=== PATIENT | female | born 1995 | race Caucasian/White ===

== ENCOUNTER 2017-10-15 07:45 | Emergency (ER) | payer SELFPAY ==
[~2017-10-15] VITALS: Ht 157.5 cm; Wt 72.8 kg
[~2017-10-15 07:45] MED LIST: FLUT1DIS IH
[2017-10-15 08:36] LABS: MICROSCOPIC AUTO
[2017-10-15 08:38] LABS: CULTURE INDICATED? NO
[2017-10-15 08:48] LABS: BASOPHILS # (AUTO) 0.02 x10^3/uL (0-0.1); BASOPHILS % (AUTO) 0 % (0-1); EOSINOPHILS # (AUTO) 0.53 x10^3/uL (0-0.4); EOSINOPHILS % (AUTO) 6 % (1-7); LYMPHOCYTES # (AUTO) 2.73 x10^3/uL (1-3.4); LYMPHOCYTES % (AUTO) 29 % (22-44); MD NO; MEAN CORPUSCULAR HEMOGLOBIN 31.7 pg (27.0-34.8); MEAN CORPUSCULAR HGB CONC 34.3 g/dL (32.4-35.8); MEAN CORPUSCULAR VOLUME 92.6 fL (80-100); MEAN PLATELET VOLUME 8.4 fL (7.4-10.4); MONOCYTES # (AUTO) 0.45 x10^3/uL (0.2-0.8); MONOCYTES % (AUTO) 5 % (2-9); NEUTROPHILS # (AUTO) 5.76 x10^3/uL (1.8-6.8); NEUTROPHILS % (AUTO) 61 % (42-75); PLATELET COUNT 305 x10^3/uL (130-400); RED BLOOD COUNT 4.44 x10^6/uL (3.82-5.3); RED CELL DISTRIBUTION WIDTH 12.3 % (9.6-15.2)
[2017-10-15 08:59] LABS: ALANINE AMINOTRANSFERASE 32 U/L (12-78); ALBUMIN 3.5 g/dL (3.4-5.0); ANION GAP 7 mmol/L (5-15); CALCIUM 8.4 mg/dL (8.5-10.1); CHLORIDE 110 mmol/L (98-107); CREATININE 0.82 mg/dL (0.55-1.02)
[2017-10-15 09:04] LABS: ALKALINE PHOSPHATASE 69 U/L (45-117); BILIRUBIN,TOTAL 0.2 mg/dL (0.2-1.0); TOTAL PROTEIN 7.3 g/dL (6.4-8.2)
[2017-10-15 09:11] VITALS: BP 99/63
== END 2017-10-15 10:02 | disposition home or self-care (01) ==
LOC: ED 09:07
DX: O20.0 Threatened abortion (principal); Z3A.01 Less than 8 weeks gestation of pregnancy
CPT/HCPCS: 36415; 76801; 80053; 81001; 84702; 85025; 86901; 99285

== ENCOUNTER 2017-11-30 08:54 | Emergency (ER) | payer BC, OTHER ==
[~2017-11-30] VITALS: Ht 157.5 cm; Wt 71.0 kg
[2017-11-30] MEDS ORDERED: EPINEPHRINE 1 MG/ML, 1ML ONE (09:06)
[2017-11-30] MEDS ORDERED: DIPHENHYDRAMINE 50 MG/ML, 1ML ONE (09:14)
[2017-11-30] MEDS ORDERED: methylPREDNISolone SOD SUCC 125 MG/2 ML ONE (09:14)
[2017-11-30] MEDS ORDERED: methylPREDNISolone SOD SUCC 125 MG/2 ML IVPush ONE (09:30)
[2017-11-30] MEDS ORDERED: EPINEPHRINE 1 MG/ML, 1ML IM ONE (09:30)
[2017-11-30] MEDS ORDERED: SODIUM CHLORIDE 0.9% 1,000ML IVBOLUS ONE (09:30)
[2017-11-30] MEDS ORDERED: DIPHENHYDRAMINE 50 MG/ML, 1ML IVPush ONE (09:30)
[2017-11-30 10:48] VITALS: BP 96/62
== END 2017-11-30 10:51 | disposition home or self-care (01) ==
LOC: ED 09:47
DX: T78.1XXA Other adverse food reactions, not elsewhere classified, initial encounter (principal); X58.XXXA Exposure to other specified factors, initial encounter; Y93.89 Activity, other specified; Y92.89 Other specified places as the place of occurrence of the external cause; Y99.8 Other external cause status
CPT/HCPCS: 96372; 96374; 96375; 99291; J0171; J1200; J2930; J7030; 96361

== ENCOUNTER 2017-12-23 00:10 | Emergency (ER) | payer BC ==
[~2017-12-23] VITALS: Ht 157.5 cm; Wt 75.0 kg
[2017-12-23 00:12] VITALS: BP 125/76
[2017-12-23] MEDS ORDERED: KETOROLAC 30 MG/1 ML ONE (00:56)
[2017-12-23] MEDS ORDERED: KETOROLAC 30 MG/1 ML IM ONE (01:00)
== END 2017-12-23 02:50 | disposition home or self-care (01) ==
LOC: ED 01:54
DX: S99.922A Unspecified injury of left foot, initial encounter (principal); S99.921A Unspecified injury of right foot, initial encounter; G89.11 Acute pain due to trauma; J45.909 Unspecified asthma, uncomplicated; W01.0XXA Fall on same level from slipping, tripping and stumbling without subsequent striking against object, initial encounter; Y93.41 Activity, dancing; Y92.009 Unspecified place in unspecified non-institutional (private) residence as the place of occurrence of the external cause; Y99.8 Other external cause status
CPT/HCPCS: 73590; 73610; 73630; 96372; 99284; J1885

== ENCOUNTER 2018-12-15 19:56 | Outpatient (CLI) | payer BC ==
[~2018-12-15] VITALS: Ht 154.9 cm; Wt 80.0 kg
== END 2018-12-15 20:45 | disposition home or self-care (01) ==
LOC: LDOP 19:56
PROVIDERS: ATTEND Obstetrics & Gynecology
DX: O26.893 Other specified pregnancy related conditions, third trimester (principal); Z3A.38 38 weeks gestation of pregnancy
CPT/HCPCS: 59025; 99211; G0463

== ENCOUNTER 2018-12-16 10:15 | Inpatient (IN) | payer BC ==
[~2018-12-16] VITALS: Ht 154.9 cm; Wt 80.9 kg
[2018-12-16] MEDS ORDERED: OXYTOCIN 30U/ 0.9% NaCL 500ML 500 ML IV ONE (10:17)
[2018-12-16] MEDS ORDERED: D5%-LACTATED RINGERS 1,000 ML IV SCH (10:17)
[2018-12-16] MEDS ORDERED: FENTANYL PF 100 MCG/2ML ONE ×2 (10:27→12:32)
[2018-12-16] MEDS ORDERED: MISOPROSTOL 200 MCG TABLET ONE ×2 (10:27→15:46)
[2018-12-16] MEDS ORDERED: LIDOCAINE 1%, 20ML ONE (10:27)
[2018-12-16] MEDS ORDERED: NEWBORN KIT ONE (10:27)
[2018-12-16] MEDS ORDERED: OXYTOCIN 30U/ 0.9% NaCL 500ML 500 ML ONE (10:28)
[2018-12-16] MEDS: LACTATED RINGERS 1,000 ML IV SCH ×2 (10:29→18:17)
[2018-12-16] MEDS ORDERED: TERBUTALINE 1 MG/ML, 1ML IVPush PRN (10:30)
[2018-12-16] MEDS ORDERED: ONDANSETRON 2MG/ML, 2ML IVPush PRN (10:30)
[2018-12-16] MEDS: FENTANYL PF 100 MCG/2ML IVPush PRN ×2 (10:30→12:37)
[2018-12-16] MEDS ORDERED: FENTANYL PF 100 MCG/2ML IV PRN (10:30)
[2018-12-16] MEDS ORDERED: SODIUM CITRATE/CITRIC ACID 15 ML UDC PO PRN (10:30)
[2018-12-16] MEDS ORDERED: METOCLOPRAMIDE 5 MG/ML, 2ML IVPush PRN (10:30)
[2018-12-16 10:44] VITALS: BP 97/59
[2018-12-16 11:08] LABS: BASOPHILS # (AUTO) 0.03 x10^3/uL (0-0.1); BASOPHILS % (AUTO) 0 % (0-1); EOSINOPHILS # (AUTO) 0.14 x10^3/uL (0-0.4); EOSINOPHILS % (AUTO) 1 % (1-7); LYMPHOCYTES # (AUTO) 2.27 x10^3/uL (1-3.4); LYMPHOCYTES % (AUTO) 22 % (22-44); MD NO; MEAN CORPUSCULAR HGB CONC 34.6 g/dL (32.4-35.8); MEAN CORPUSCULAR VOLUME 95.3 fL (80-100); MEAN PLATELET VOLUME 8.5 fL (7.4-10.4); MONOCYTES # (AUTO) 0.71 x10^3/uL (0.2-0.8); MONOCYTES % (AUTO) 7 % (2-9); NEUTROPHILS # (AUTO) 7.41 x10^3/uL (1.8-6.8); NEUTROPHILS % (AUTO) 70 % (42-75); PLATELET COUNT 229 x10^3/uL (130-400); RED BLOOD COUNT 3.86 x10^6/uL (3.82-5.3); RED CELL DISTRIBUTION WIDTH 13.1 % (9.6-15.2)
[2018-12-16] MEDS: OXYTOCIN 30U/ 0.9% NaCL 500ML 500 ML IV SCH (14:42)
[2018-12-16] MEDS ORDERED: IBUPROFEN 600 MG TABLET ONE (15:10)
[2018-12-16] MEDS: IBUPROFEN 600 MG TABLET PO PRN ×2 (15:12→21:44)
[2018-12-16] MEDS ORDERED: MISOPROSTOL 200 MCG TABLET PR PRN (15:30)
[2018-12-16] MEDS ORDERED: OXYcodone/APAP 5/325MG TABLET PO PRN (15:30)
[2018-12-16] MEDS ORDERED: OXYcodone/APAP 5/325MG TABLET ONE (15:57)
[2018-12-16] MEDS: OXYcodone/APAP 5/325MG TABLET PO PRN ×2 (15:58→21:44)
[2018-12-16] MEDS ORDERED: MISOPROSTOL 200 MCG TABLET PR ONE (16:00)
[2018-12-16 18:00] VITALS: BP 102/68
[2018-12-16 21:30] VITALS: BP 99/64
[2018-12-16] MEDS: DOCUSATE 100 MG CAPSULE PO PRN (21:44)
[2018-12-16 23:05] LABS: BASOPHILS # (AUTO) 0.04 x10^3/uL (0-0.1); BASOPHILS % (AUTO) 0 % (0-1); EOSINOPHILS # (AUTO) 0.07 x10^3/uL (0-0.4); EOSINOPHILS % (AUTO) 1 % (1-7); LYMPHOCYTES # (AUTO) 2.07 x10^3/uL (1-3.4); LYMPHOCYTES % (AUTO) 19 % (22-44); MD NO; MEAN CORPUSCULAR HEMOGLOBIN 33.2 pg (27.0-34.8); MEAN CORPUSCULAR HGB CONC 34.7 g/dL (32.4-35.8); MEAN CORPUSCULAR VOLUME 95.6 fL (80-100); MEAN PLATELET VOLUME 8.1 fL (7.4-10.4); MONOCYTES % (AUTO) 5 % (2-9); NEUTROPHILS # (AUTO) 8.37 x10^3/uL (1.8-6.8); NEUTROPHILS % (AUTO) 75 % (42-75); PLATELET COUNT 202 x10^3/uL (130-400); RED BLOOD COUNT 3.65 x10^6/uL (3.82-5.3); RED CELL DISTRIBUTION WIDTH 13.4 % (9.6-15.2)
[2018-12-17 01:00] VITALS: BP 92/56
[2018-12-17] MEDS: OXYTOCIN 30U/ 0.9% NaCL 500ML 500 ML IV SCH (01:07)
[2018-12-17] MEDS: LACTATED RINGERS 1,000 ML IV SCH (02:17)
[2018-12-17 04:20] VITALS: BP 93/62
[2018-12-17] MEDS: DOCUSATE 100 MG CAPSULE PO PRN (08:07)
[2018-12-17 08:18] VITALS: BP 97/65
[2018-12-17] MEDS ORDERED: PRENATAL VIT/IRON/FA 1 EACH TABLET PO SCH (09:00)
== END 2018-12-17 13:26 | disposition home or self-care (01) | DRG 807 ==
LOC: LDIP 10:15 → 2NW 17:15
PROVIDERS: ADMIT Obstetrics & Gynecology; ATTEND Obstetrics & Gynecology
PROC: 10E0XZZ Delivery of Products of Conception, External Approach (ICD-10-PCS; principal; 2018-12-16)
PROC: 0HQ9XZZ Repair Perineum Skin, External Approach (ICD-10-PCS; 2018-12-16)
PROC: 10907ZC Drainage of Amniotic Fluid, Therapeutic from Products of Conception, Via Natural or Artificial Opening (ICD-10-PCS; 2018-12-16)
DX: O99.52 Diseases of the respiratory system complicating childbirth (principal); Z37.0 Single live birth; Z3A.38 38 weeks gestation of pregnancy; O70.0 First degree perineal laceration during delivery; J45.909 Unspecified asthma, uncomplicated
CPT/HCPCS: 36415; 85025; 86850; 86900; G0378; J3010; J2590; J7120

== ENCOUNTER 2020-06-06 04:42 | Emergency (ER) | payer BC ==
[~2020-06-06] VITALS: Ht 154.9 cm; Wt 80.0 kg
--- NOTE | 2020-06-06 05:04 | NUR ---
[place] [id number] [phone]
--- NOTE | 2020-06-06 05:50 | NUR ---
PT BROUGHT BACK TO THIS RN ROOM AT THIS TIME. PT RESTING ON GURNEY, NAD, APPEARS COMFORTABLE, PLACED ON SPO2/BP MONITORING AT THIS TIME. WCTM PT BIB [facility] FROM A [employer] WITH FRIENDS. PT DRANK SIGNIFICANT AMOUNTS OF TEQUILA AND WHITECLAWS. PT NOW DROWSY, ETOH ODOR, NAD, MAINTAINING AIRWAY. FINGER STICK 68 EN ROUTE, NOW 88
--- NOTE | 2020-06-06 06:40 | NUR ---
pt resting on gurney, nad, appears comfortable, warm blanket provided for comfort, lights dimmed, monitoring in place, vss, wctm.
--- NOTE | 2020-06-06 06:58 | NUR ---
bedside report to Dario WATKINS. pt care transferred at this time.
--- NOTE | 2020-06-06 07:10 | NUR ---
PATIENT ASLEEP, WAKES EASILY WITH LIGHT STIMULATION. PATIETN RAILS UP, ON MONITOR.
--- NOTE | 2020-06-06 08:14 | NUR ---
CALLED [facility] TO [facility]MENT[employer]AFETY SPECIALIST. PATIENT FEELS IMPROVED. TIRED. ORIENTED. DISCHARGE REVIEWED.
[2020-06-06 08:15] VITALS: BP 111/65
--- NOTE | 2020-06-06 08:23 | NUR ---
PATIENT GOOD ON FEET, KNOWS ADDRESS ORIENTED X4. GOT HER [employer] HOME
== END 2020-06-06 08:25 | disposition home or self-care (01) ==
LOC: ED 08:00
DX: F10.220 Alcohol dependence with intoxication, uncomplicated (principal); J45.909 Unspecified asthma, uncomplicated; Y90.9 Presence of alcohol in blood, level not specified
CPT/HCPCS: 82962; 99283

== ENCOUNTER 2021-03-16 09:31 | Emergency (ER) | payer BC ==
[~2021-03-16] VITALS: Ht 154.9 cm; Wt 76.3 kg
[2021-03-16] MEDS ORDERED: SODIUM CHLORIDE FLUSH 10ML SYR IVF ONE (10:30)
[2021-03-16] MEDS ORDERED: SODIUM CHLORIDE 0.9% 1,000ML IVBOLUS ONE (10:30)
[2021-03-16] MEDS ORDERED: ONDANSETRON 2MG/ML, 2ML IVPush ONE (10:30)
[2021-03-16 10:44] LABS: BASOPHILS % (AUTO) 0 % (0-1); EOSINOPHILS % (AUTO) 7 % (1-7); LYMPHOCYTES % (AUTO) 42 % (22-44); MEAN CORPUSCULAR HEMOGLOBIN 31.8 pg (27.0-34.8); MEAN CORPUSCULAR HGB CONC 34.6 g/dL (32.4-35.8); MEAN PLATELET VOLUME 8.5 fL (7.4-10.4); MONOCYTES % (AUTO) 7 % (2-9); NEUTROPHILS % (AUTO) 44 % (42-75); PLATELET COUNT 255 x10^3/uL (130-400); RED BLOOD COUNT 4.19 x10^6/uL (3.82-5.3); RED CELL DISTRIBUTION WIDTH 12.9 % (9.6-15.2)
[2021-03-16 10:57] LABS: ALANINE AMINOTRANSFERASE 22 U/L (12-78); ANION GAP 6 mmol/L (5-15); CALCIUM 7.8 mg/dL (8.5-10.1); CHLORIDE 109 mmol/L (98-107)
[2021-03-16 10:59] LABS: ALKALINE PHOSPHATASE 58 U/L (45-117); BILIRUBIN,TOTAL 0.4 mg/dL (0.2-1.0); TOTAL PROTEIN 6.7 g/dL (6.4-8.2)
--- NOTE | 2021-03-16 11:00 | NUR ---
PT TO US
[2021-03-16] MEDS ORDERED: ONDANSETRON 2MG/ML, 2ML ONE (11:36)
[2021-03-16] MEDS ORDERED: ACETAMINOPHEN 500 MG TABLET ONE (11:36)
[2021-03-16] MEDS ORDERED: ACETAMINOPHEN 325 MG TABLET ONE (11:41)
[2021-03-16] MEDS ORDERED: ACETAMINOPHEN 325 MG TABLET PO ONE (12:00)
[2021-03-16 12:33] VITALS: BP 103/65
[2021-03-16 12:41] LABS: MICROSCOPIC NOT IND
== END 2021-03-16 13:22 | disposition home or self-care (01) ==
LOC: ED 13:20
DX: O26.891 Other specified pregnancy related conditions, first trimester (principal); O21.8 Other vomiting complicating pregnancy; O99.511 Diseases of the respiratory system complicating pregnancy, first trimester; J45.909 Unspecified asthma, uncomplicated; Z3A.01 Less than 8 weeks gestation of pregnancy
CPT/HCPCS: 36415; 76801; 80053; 81003; 85025; 96361; 96374; 99284; J2405; J7030

== ENCOUNTER 2021-04-02 07:05 | Emergency (ER) | payer BC ==
[~2021-04-02] VITALS: Ht 154.9 cm; Wt 74.3 kg
--- NOTE | 2021-04-02 07:18 | NUR ---
THIS IS A 26 YEAR OLD FEMALE WHO C/O APPROX 9 WKS , SHARP LEFT SIDE ABD PAIN. ONSET YESTERDAY
[2021-04-02] MEDS ORDERED: ONDANSETRON 2MG/ML, 2ML IVPush ONE (07:30)
[2021-04-02] MEDS ORDERED: ACETAMINOPHEN 500 MG TABLET PO ONE (07:30)
[2021-04-02] MEDS ORDERED: SODIUM CHLORIDE 0.9% 1,000ML IVBOLUS ONE ×2 (07:30→10:00)
[2021-04-02] MEDS ORDERED: ACETAMINOPHEN 500 MG TABLET ONE (07:41)
[2021-04-02] MEDS ORDERED: ONDANSETRON 2MG/ML, 2ML ONE (07:41)
--- NOTE | 2021-04-02 07:48 | NUR ---
COLLECTED URINE, ULTRASOUND IN ROOM
[2021-04-02 08:01] LABS: MICROSCOPIC INDICATED
[2021-04-02 08:31] LABS: BASOPHILS % (AUTO) 1 % (0-1); EOSINOPHILS % (AUTO) 5 % (1-7); LYMPHOCYTES % (AUTO) 40 % (22-44); MEAN CORPUSCULAR HEMOGLOBIN 31.7 pg (27.0-34.8); MEAN CORPUSCULAR HGB CONC 34.8 g/dL (32.4-35.8); MEAN PLATELET VOLUME 8.9 fL (7.4-10.4); MONOCYTES % (AUTO) 6 % (2-9); NEUTROPHILS % (AUTO) 48 % (42-75); PLATELET COUNT 248 x10^3/uL (130-400); RED BLOOD COUNT 4.23 x10^6/uL (3.82-5.3); RED CELL DISTRIBUTION WIDTH 12.7 % (9.6-15.2)
[2021-04-02 08:36] LABS: ALBUMIN 3.2 g/dL (3.4-5.0); ANION GAP 8 mmol/L (5-15); CALCIUM 8.9 mg/dL (8.5-10.1); CHLORIDE 107 mmol/L (98-107)
[2021-04-02 08:55] LABS: CREATININE 0.63 mg/dL (0.55-1.02)
--- NOTE | 2021-04-02 08:56 | NUR ---
PT C/O THAT SHE HAD A HICCUP WITH SOME UPPER ABD PAIN.
--- NOTE | 2021-04-02 09:41 | NUR ---
SECOND LITER OF FLUID INFUSING
[2021-04-02 10:54] VITALS: BP 104/71
--- NOTE | 2021-04-02 11:25 | NUR ---
Patient/Caregiver given discharge instructions and they have confirmed that they understand the instructions. Patient ambulatory with steady gait. NAD, all questions answered appropriately, denies additional needs at this time. No personal belongings left in room after discharge.
== END 2021-04-02 11:26 | disposition home or self-care (01) ==
LOC: ED 09:08
DX: O26.891 Other specified pregnancy related conditions, first trimester (principal); R10.32 Left lower quadrant pain; R11.2 Nausea with vomiting, unspecified; Z3A.09 9 weeks gestation of pregnancy
CPT/HCPCS: 36415; 76801; 80048; 81001; 82040; 84702; 85025; 87086; 96361; 96374; 99285; J2405; J7030

== ENCOUNTER 2021-04-20 19:54 | Emergency (ER) | payer BC ==
[~2021-04-20] VITALS: Ht 154.9 cm; Wt 72.0 kg
[2021-04-20 20:09] VITALS: BP 94/58
[2021-04-20 20:26] LABS: BASOPHILS % (AUTO) 1 % (0-1); EOSINOPHILS % (AUTO) 4 % (1-7); LYMPHOCYTES % (AUTO) 44 % (22-44); MEAN CORPUSCULAR HEMOGLOBIN 31.8 pg (27.0-34.8); MEAN CORPUSCULAR HGB CONC 35.1 g/dL (32.4-35.8); MEAN PLATELET VOLUME 8.8 fL (7.4-10.4); MONOCYTES % (AUTO) 7 % (2-9); NEUTROPHILS % (AUTO) 45 % (42-75); PLATELET COUNT 277 x10^3/uL (130-400); RED CELL DISTRIBUTION WIDTH 12.5 % (9.6-15.2)
[2021-04-20 20:37] LABS: ALANINE AMINOTRANSFERASE 26 U/L (12-78); ALBUMIN 3.4 g/dL (3.4-5.0); ANION GAP 15 mmol/L (5-15); CALCIUM 9.1 mg/dL (8.5-10.1); CHLORIDE 104 mmol/L (98-107); CREATININE 0.61 mg/dL (0.55-1.02)
[2021-04-20 20:39] LABS: ALKALINE PHOSPHATASE 74 U/L (45-117); BILIRUBIN,TOTAL 0.4 mg/dL (0.2-1.0); TOTAL PROTEIN 7.7 g/dL (6.4-8.2)
--- NOTE | 2021-04-20 23:15 | NUR ---
called in the lobby, no answer.
--- NOTE | 2021-04-20 23:45 | NUR ---
called in the lobby 2nd time. no answer.
--- NOTE | 2021-04-21 00:13 | NUR ---
na x 3
== END 2021-04-21 00:15 | disposition left against medical advice (07) ==
LOC: ED 20:10
DX: O26.891 Other specified pregnancy related conditions, first trimester (principal); R42 Dizziness and giddiness; R06.00 Dyspnea, unspecified; R06.02 Shortness of breath; Z3A.12 12 weeks gestation of pregnancy
CPT/HCPCS: 36415; 71045; 80053; 85025; 93005; 99285